=== PATIENT | male | born 1980 | race Caucasian/White ===

== ENCOUNTER 2016-09-14 09:55 | Emergency (ER) | payer BC, OTHER ==
[2016-09-14] MEDS ORDERED: Ibuprofen 800 MG TAB ONE (10:59)
[2016-09-14] MEDS ORDERED: HYDROcodone/Acetaminophen 10/325 mg Tablet ONE (10:59)
--- NOTE | 2016-09-14 11:23 | RAD ---
THREE VIEWS OF THE RIGHT FOOT: Indication: Twisting injury to right foot three days ago with pain. FINDINGS: Lisfranc alignment is preserved. No acute fracture or subluxation is evident. No radiopaque foreig n body is noted. IMPRESSION: No acute osseous abnormality. POS: [facility]
--- NOTE | 2016-09-14 11:31 | ERRECORD ---
[facility] EMERGENCY RECORD HPI FOOT (TueSep 15, 2016 06:17 AGRE) CHIEF COMPLAINT: Patient presents for evaluation of decreased range of motion, Patient presents for evaluation of injury, Patient presents for evaluation of pain, Patient presents for evaluation of swelling, Patient presents for evaluation of tenderness, to the right foot. HISTORIAN: History provided by patient, WAS WALKING OVER THE WEEKEND AND TWISTED HER FOOT. COMPLAIN OF PAIN ON WALKING. SAW A PHYSICIAN YESTERDAY AND EXAMINED BUT NO XRAYS OR PAIN MEDS. WAS TOLD IT WAS A SPRAIN BUT IF WORST GO TO THE ED. MECHANISM OF INJURY: Known mechanism. LOCATION: No localizing symptoms. QUALITY: Pain is sharp in nature, described as shooting, described as stabbing. SEVERITY: Maximum severity of symptoms severe, Currently symptoms are severe. TIME COURSE: Gradual onset of symptoms, Symptoms are worsening, are constant. ASSOCIATED WITH: No associated ankle pain, No associated distal injury, No associated distal neuro complaint, No associated erythema, No associated hip pain, No associated inability to ambulate, No associated inability to bear weight, No associated knee pain, No associated open wounds, Associated with pain on walking, No associated proximal injury, No associated tingling, No associated weakness distal to injury, Denies any other complaints. EXACERBATED BY: Patient's condition exacerbated by walking. RELIEVED BY: Patient's condition relieved by nothing. ROS (TueSep 15, 2016 06:20 AGRE) CONSTITUTIONAL: Historian denies chills, denies fever, denies lethargy, denies malaise. EYES: Historian denies eye pain, denies eye redness. ENT: Historian denies rhinorrhea, denies sinus pain, denies sore throat. CARDIOVASCULAR: Historian denies chest pain, denies dyspnea on exertion. RESPIRATORY: Historian denies cough, denies shortness of breath. GI: Historian denies abdominal pain, denies nausea, denies vomiting. MUSCULOSKELETAL: Historian denies back pain, denies neck pain. SKIN: Negative skin review of systems, Historian denies skin changes, denies skin lesions. NEUROLOGIC: Historian denies headache, denies mental status changes. PSYCHIATRIC: Negative psychiatric review of systems, Historian denies anxiety. PAST MEDICAL HISTORY (10:14 MSPE) MEDICAL HISTORY: Past medical history includes cardiac history, cardiac ablation, Mar 2016, Flu vaccine not up to &a-1R&a+25V*p+0X*b1710L*c202B*c15G*c2P*p-0X&a-25V&a+1R Name: Andrew Weber : 1980 M36 MedRec: [id number] AcctNum: [id number] Prepared: TueSep 15, 2016 06:33 by Interface Page 1 of 4 pMD [facility] EMERGENCY RECORD date, Tetanus up to date, Pneumococcal vaccine not up to date, Past medical history includes cardiac history, arrhythmia, atrial fibrillation, Past medical history includes endocrine disease, hypothyroidism, Notes: chonic back pain, ,includes history of diabetes, Type II, diet controlled, includes history of obesity, SLEEP APNEA,. MALE SURGICAL HISTORY: ADDENOIDECTOMY, Surgical history of orthopedic surgery-RT KNEE, BILATERAL HANDS, Surgical history of tonsillectomy. PSYCHIATRIC HISTORY: Psychiatric history includes, anxiety, Notes: ADHD, HX OF PANIC ATTACKS. SOCIAL HISTORY: Patient denies alcohol use, Patient denies drug use, Patient has no smoking history. KNOWN ALLERGIES Medrol (Sumit) Penicillins Sulfa (Sulfonamide Antibiotics) CURRENT MEDICATIONS (10:11 MSPE) flecainide: TABLET : Strength - 50 mg : ORAL Patient Dose: 1 tab(s) Oral 2 times a day. metFORMIN: TABLET : Strength - 500 mg : ORAL Patient Dose: 2 tab(s) Oral 2 times a day. Paxil: TABLET : Strength - 40 mg : ORAL Patient Dose: 40 mg Oral once a day. KlonoPIN: TABLET : Strength - 2 mg : ORAL Patient Dose: 1 tab(s) Oral 2 times a day. glyBURIDE: TABLET : Strength - 2.5 mg : ORAL Patient Dose: 1 tab(s) Oral once a day (in the morning). lisinopril: TABLET : Strength - 20 mg : ORAL Patient Dose: 1 tab(s) Oral once a day (in the morning). meTOPROLOL succinate: TABLET, EXTENDED RELEASE 24 HR : Strength - 25 mg : ORAL Patient Dose: 25 mg Oral once a day. VITAL SIGNS (10:11 MSPE) VITAL SIGNS: BP: 126/69, Pulse: 80, Resp: 18, Temp: 98.5 (Oral), Pain: 8, O2 sat: 97 on Room Air, Time: 09/14/2016 10:11. PHYSICAL EXAM (TueSep 15, 2016 06:20 AGRE) CONSTITUTIONAL: Vital signs reviewed, Patient afebrile, Patient appears non toxic, Patient appears pain free, Patient alert and oriented to person, place and time, NURSES NOTES REVIEWED. &a-1R&a+25V*p+0X*k8884U*c202B*c15G*c2P*p-0X&a-25V&a+1R Name: Andrew Weber : 1980 M36 MedRec: [id number] AcctNum: [id number] Prepared: TueSep 15, 2016 06:33 by Interface Page 2 of 4 pMD [facility] EMERGENCY RECORD HEAD: Head exam included findings of head atraumatic, normocephalic. EYES: Eye exam included findings of eyelids normal to inspection, Extraocular muscles intact, Conjunctiva normal, Sclera normal. ENT: Ear exam normal, Nose exam normal, Mouth exam normal. NECK: Neck exam included findings of normal range of motion, no meningeal signs. RESPIRATORY CHEST: Respiratory exam included findings of no respiratory distress, Chest exam included findings of chest movement symmetrical. BACK: Back exam included findings of normal inspection, range of motion normal. UPPER EXTREMITY: Upper extremity exam included findings of inspection normal, Range of motion normal. LOWER EXTREMITY: Motor strength normal, Sensation intact, Pedal pulse normal, distal pulses intact, capillary refill less than 2 seconds, distal motor intact, distal sensory intact, SWELLING AND TENDERNESS TO PALPATION OVER THE TOP OF THE RIGHT FOOT OVER THE 2ND METATARSAL AND OVER THE 2ND TOE PROXIMAL PHALANX. NEURO: Neuro exam findings include patient oriented to person, place and time, Speech normal, Gait normal, Memory normal, Cranial nerves intact, no focal motor deficits. SKIN: Skin exam included findings of skin warm, dry, and normal in color. PSYCHIATRIC: Psychiatric exam normal, Normal affect. RADIOLOGYINTERPRETATION (TueSep 15, 2016 06:22 AGRE) ELECTRICAL LINEWORKER: Preliminary review of x-rays by, Radiologist, NO FX OR DISLOCATION. MEDICATION ADMINISTRATION SUMMARY Drug Name: ibuprofen, Dose Ordered: 800 mg, Route: Oral, Status: Ordered, Time: 10:58 09/14/2016, Drug Name: HYDROcodone-acetaminophen, Dose Ordered: 10/325 tab(s), Route: Oral, Status: Ordered, Time: 10:58 09/14/2016, Detailed record available in Medication Service section. DOCTOR NOTES (TueSep 15, 2016 06:22 AGRE) RE-EVALUATION: Routine re-evaluation, after administration of analgesics, The patient's condition has improved. TEXT: DISCUSSED WITH PATIENT AND TRANSPORTATION DEPARTMENT SUPERVISOR THE FINDINGS ON EXAM, RESULTS OF XRAYS, RECOMMENDATIONS FOR MANAGEMENT OF THE INJURIES AND PAIN, IMMOBILIZATION WITH ORTHO SHOE, NEED FOR FOLLOW UP, POSSIBILITY OF HAIRLINE FX, HE EXPRESSED UNDERSTANDING AND AGREEMENT. PATIENT STATUS: Patient has improved since arrival to emergency department. PATIENT PLAN: The patient will be discharged. DATA REVIEWED: Xray data reviewed, Discussed with family. &a-1R&a+25V*p+0X*l9700I*c202B*c15G*c2P*p-0X&a-25V&a+1R Name: Andrew Weber : 1980 M36 MedRec: [id number] AcctNum: [id number] Prepared: TueSep 15, 2016 06:33 by Interface Page 3 of 4 pMD [facility] EMERGENCY RECORD PROBLEM LIST No recorded problems DIAGNOSIS (10:48 AGRE) FINAL: PRIMARY: RIGHT foot sprain. PRESCRIPTION (10:59 AGRE) Motrin: TABLET : 800 mg : ORAL : Quantity: 1 Unit: tab(s) Route: ORAL Schedule: 3 times a day Dispense: 24 May substitute. Refills: No Refills . NOTES: No Refills. acetaminophen-codeine: TABLET : 300 mg-60 mg : ORAL : Quantity: 1 Unit: tab(s) Route: ORAL Schedule: every 6 hours PRN Dispense: 20 Unit: tab(s) May substitute. Refills: No Refills . NOTES: prn severe pain No Refills. DISPOSITION PATIENT: Disposition Type: Discharge, Disposition: *Discharge Home, Condition: Improved. (10:48 AGRE) Patient left the department. (11:23 MSPE) Delgado: AGRE=MD Scot, Gio MSPE=JAKOB Pablo, Michelle &a-1R&a+25V*p+0X*d3377Y*c202B*c15G*c2P*p-0X&a-25V&a+1R Name: Andrew Weber : 1980 M36 MedRec: [id number] AcctNum: [id number] Prepared: TueSep 15, 2016 06:33 by Interface Page 4 of 4 pMD MTDD
--- NOTE | 2016-09-14 11:37 | PICIS ---
[facility] EMERGENCY RECORD TRIAGE (10:10 MSPE) TRIAGE NOTES: saw PCP yesterday for same...c/o right foot pain since yesterday. Denies known injury. (10:10 MSPE) PATIENT: NAME: Andrew Weber, AGE: 36, GENDER: male, : Tue1980, TIME OF GREET: TueSep 14, 2016 09:55, PREFERRED LANGUAGE: Korean, ETHNICITY: Not or , ECODE BILLING MAP: [facility], SSN: [id number], Zip Code: [address], KG WEIGHT: [phone], PHONE: , , , PERSON ID: [id number], PCP: MD Workman Katherine. (10:10 MSPE) COMPLAINT: RIGHT FOOT PAIN. (10:10 MSPE) ADMISSION: URGENCY: 4 Non Urgent, ADMISSION SOURCE: Home, TRANSPORT: CAR, BED: TRIAGE. (10:10 MSPE) SIRS SCORING: Heart Rate 55-109 (0), Temp range 96.8-101.1 (0), respiratory rate 12-24 (0), Mental Status altered: no (0), Total SIRS Score 0. (10:19 MSPE) PROVIDERS: TRIAGE NURSE: Michelle Pablo RN. (10:10 MSPE) VITAL SIGNS: BP 126/69, Pulse 80, Resp 18, Temp 98.5, (Oral), Pain 8, O2 Sat 97, on Room Air, Time 09/14/2016 10:11. (10:11 MSPE) PREVIOUS VISIT ALLERGIES: Medrol (Sumit), Penicillins, Sulfa (Sulfonamide Antibiotics). (10:10 MSPE) Medrol (Sumit), Penicillins, Sulfa (Sulfonamide Antibiotics). (10:14 MSPE) KNOWN ALLERGIES Medrol (Sumit) Penicillins Sulfa (Sulfonamide Antibiotics) CURRENT MEDICATIONS (10:11 MSPE) flecainide: TABLET : Strength - 50 mg : ORAL Patient Dose: 1 tab(s) Oral 2 times a day. metFORMIN: TABLET : Strength - 500 mg : ORAL Patient Dose: 2 tab(s) Oral 2 times a day. Paxil: TABLET : Strength - 40 mg : ORAL Patient Dose: 40 mg Oral once a day. KlonoPIN: TABLET : Strength - 2 mg : ORAL Patient Dose: 1 tab(s) Oral 2 times a day. glyBURIDE: TABLET : Strength - 2.5 mg : ORAL Patient Dose: 1 tab(s) Oral once a day (in the morning). lisinopril: TABLET : Strength - 20 mg : ORAL Patient Dose: 1 tab(s) Oral once a day (in the morning). meTOPROLOL succinate: TABLET, EXTENDED RELEASE 24 HR : Strength - 25 mg : ORAL Patient Dose: 25 mg Oral once a day. &a-1R&a+25V*p+0X*q1451P*c202B*c15G*c2P*p-0X&a-25V&a+1R Name: Andrew Weber : 1980 M36 MedRec: [id number] AcctNum: [id number] Prepared: TueSep 15, 2016 06:38 by Interface Page 1 of 6 pMD [facility] EMERGENCY RECORD VITAL SIGNS (10:11 MSPE) VITAL SIGNS: BP: 126/69, Pulse: 80, Resp: 18, Temp: 98.5 (Oral), Pain: 8, O2 sat: 97 on Room Air, Time: 09/14/2016 10:11. NURSING ASSESSMENT: EXTREMITY LOWER (10:16 MSPE) CONSTITUTIONAL: Patient arrives ambulatory, Unsteady gait, ambulates with slight limp, History obtained from patient, Patient appears comfortable, Patient cooperative, Patient alert, Oriented to person, place and time, Skin warm, Skin dry. PAIN: stabbing pain, throbbing pain, Onset of pain yesterday. RIGHT LOWER EXTREMITY: Right lower extremity assessment findings include capillary refill less than 2 seconds, Skin color normal, Skin temperature warm, Distal sensation intact, posterior tibia pulse is +3, dorsalis pedis pulse is +3, Notes: tenderness to dorsum of right foot; sts had "cyst" yesterday at MD s office. No swelling or redness noted at present. NURSING PROCEDURE: BEDSIDE RADIOLOGY (10:31 CCRI) BEDSIDE RADIOLOGY: Bedside radiology performed by CC, Portable x-ray performed, of the right foot. NURSING PROCEDURE: DISCHARGE NOTE (11:18 MSPE) DISCHARGE: Patient discharged to home, ambulating without assistance, family driving, accompanied by parent, Summary of Care printed/ provided, Discharge instructions given to patient, Simple or moderate discharge teaching performed, Prescriptions given and instructions on side effects given, Above person(s) verbalized understanding of discharge instructions and follow-up care, Patient treated and evaluated by physician. BELONGINGS: Belongings remain with patient. NURSING PROCEDURE: SPLINTING (11:15 MSPE) SPLINTING: Splinting indicated for sprain care, Splint applied to, on the right foot, by Luis Miguel Pablo RN, post-op shoe applied. ORDER DETAILS Order Name: Miscellaneous Nurse Order(s), Status: Done, Time: 11:20 09/14/2016, User: JOY, - Ordered for: MD Ellison Andrea, - Entered by: JAKOB Pablo Marilyn - Tue Sep 14, 2016 11:20, - Quantity: 1, Order Name: XR Foot Rt 3 View STANDARD, Status: Active, Time: 10:25 09/14/2016, User: MARTÍNEZ, - Ordered for: MD Ellison Andrea, - Entered by: MD Ellison Andrea - Tue Sep 14, 2016 10:25, - Quantity: 1. &a-1R&a+25V*p+0X*o2549P*c202B*c15G*c2P*p-0X&a-25V&a+1R Name: Andrew Weber : 1980 M36 MedRec: [id number] AcctNum: [id number] Prepared: TueSep 15, 2016 06:38 by Interface Page 2 of 6 pMD [facility] EMERGENCY RECORD MEDICATION ADMINISTRATION SUMMARY Drug Name: ibuprofen, Dose Ordered: 800 mg, Route: Oral, Status: Ordered, Time: 10:58 09/14/2016, Drug Name: HYDROcodone-acetaminophen, Dose Ordered: 10/325 tab(s), Route: Oral, Status: Ordered, Time: 10:58 09/14/2016, Detailed record available in Medication Service section. MEDICATION SERVICE (:58 MARTÍNEZ) HYDROcodone-acetaminophen: Order: HYDROcodone-acetaminophen (hydrocodone bitartrate/acetaminophen) - Dose: 10/325 tab(s) : Oral Ordered by: Gio Ellison MD Entered by: Gio Ellison MD [facility] Sep 14, 2016 10:58 , Acknowledged by: Michelle Pablo RN TueSep 14, 2016 10:58. ibuprofen: Order: ibuprofen - Dose: 800 mg : Oral Ordered by: Gio Ellison MD Entered by: Gio Ellison MD [facility] Sep 14, 2016 10:58 , Acknowledged by: Michelle Pablo RN Sep 14, 2016 10:58. HPI FOOT (TueSep 15, 2016 06:17 AGRE) CHIEF COMPLAINT: Patient presents for evaluation of decreased range of motion, Patient presents for evaluation of injury, Patient presents for evaluation of pain, Patient presents for evaluation of swelling, Patient presents for evaluation of tenderness, to the right foot. HISTORIAN: History provided by patient, WAS WALKING OVER THE WEEKEND AND TWISTED HER FOOT. COMPLAIN OF PAIN ON WALKING. SAW A PHYSICIAN YESTERDAY AND EXAMINED BUT NO XRAYS OR PAIN MEDS. WAS TOLD IT WAS A SPRAIN BUT IF WORST GO TO THE ED. MECHANISM OF INJURY: Known mechanism. LOCATION: No localizing symptoms. QUALITY: Pain is sharp in nature, described as shooting, described as stabbing. SEVERITY: Maximum severity of symptoms severe, Currently symptoms are severe. TIME COURSE: Gradual onset of symptoms, Symptoms are worsening, are constant. ASSOCIATED WITH: No associated ankle pain, No associated distal injury, No associated distal neuro complaint, No associated erythema, No associated hip pain, No associated inability to ambulate, No associated inability to bear weight, No associated knee pain, No associated open wounds, Associated with pain on walking, No associated proximal injury, No associated tingling, No associated weakness distal to injury, Denies any other complaints. EXACERBATED BY: Patient's condition exacerbated by walking. RELIEVED BY: Patient's condition relieved by nothing. ROS (TueSep 15, 2016 06:20 AGRE) &a-1R&a+25V*p+0X*e5304K*c202B*c15G*c2P*p-0X&a-25V&a+1R Name: Andrew Weber : 1980 M36 MedRec: [id number] AcctNum: [id number] Prepared: TueSep 15, 2016 06:38 by Interface Page 3 of 6 pMD [facility] EMERGENCY RECORD CONSTITUTIONAL: Historian denies chills, denies fever, denies lethargy, denies malaise. EYES: Historian denies eye pain, denies eye redness. ENT: Historian denies rhinorrhea, denies sinus pain, denies sore throat. CARDIOVASCULAR: Historian denies chest pain, denies dyspnea on exertion. RESPIRATORY: Historian denies cough, denies shortness of breath. GI: Historian denies abdominal pain, denies nausea, denies vomiting. MUSCULOSKELETAL: Historian denies back pain, denies neck pain. SKIN: Negative skin review of systems, Historian denies skin changes, denies skin lesions. NEUROLOGIC: Historian denies headache, denies mental status changes. PSYCHIATRIC: Negative psychiatric review of systems, Historian denies anxiety. PAST MEDICAL HISTORY (10:14 MSPE) MEDICAL HISTORY: Past medical history includes cardiac history, cardiac ablation, Mar 2016, Flu vaccine not up to date, Tetanus up to date, Pneumococcal vaccine not up to date, Past medical history includes cardiac history, arrhythmia, atrial fibrillation, Past medical history includes endocrine disease, hypothyroidism, Notes: chonic back pain, ,includes history of diabetes, Type II, diet controlled, includes history of obesity, SLEEP APNEA,. MALE SURGICAL HISTORY: ADDENOIDECTOMY, Surgical history of orthopedic surgery-RT KNEE, BILATERAL HANDS, Surgical history of tonsillectomy. PSYCHIATRIC HISTORY: Psychiatric history includes, anxiety, Notes: ADHD, HX OF PANIC ATTACKS. SOCIAL HISTORY: Patient denies alcohol use, Patient denies drug use, Patient has no smoking history. PHYSICAL EXAM (TueSep 15, 2016 06:20 AGRE) CONSTITUTIONAL: Vital signs reviewed, Patient afebrile, Patient appears non toxic, Patient appears pain free, Patient alert and oriented to person, place and time, NURSES NOTES REVIEWED. HEAD: Head exam included findings of head atraumatic, normocephalic. EYES: Eye exam included findings of eyelids normal to inspection, Extraocular muscles intact, Conjunctiva normal, Sclera normal. ENT: Ear exam normal, Nose exam normal, Mouth exam normal. NECK: Neck exam included findings of normal range of motion, no meningeal signs. RESPIRATORY CHEST: Respiratory exam included findings of no respiratory distress, Chest exam included findings of chest movement symmetrical. BACK: Back exam included findings of normal inspection, range of &a-1R&a+25V*p+0X*k3125G*c202B*c15G*c2P*p-0X&a-25V&a+1R Name: Andrew Weber : 1980 M36 MedRec: [id number] AcctNum: [id number] Prepared: TueSep 15, 2016 06:38 by Interface Page 4 of 6 pMD [facility] EMERGENCY RECORD motion normal. UPPER EXTREMITY: Upper extremity exam included findings of inspection normal, Range of motion normal. LOWER EXTREMITY: Motor strength normal, Sensation intact, Pedal pulse normal, distal pulses intact, capillary refill less than 2 seconds, distal motor intact, distal sensory intact, SWELLING AND TENDERNESS TO PALPATION OVER THE TOP OF THE RIGHT FOOT OVER THE 2ND METATARSAL AND OVER THE 2ND TOE PROXIMAL PHALANX. NEURO: Neuro exam findings include patient oriented to person, place and time, Speech normal, Gait normal, Memory normal, Cranial nerves intact, no focal motor deficits. SKIN: Skin exam included findings of skin warm, dry, and normal in color. PSYCHIATRIC: Psychiatric exam normal, Normal affect. EVENTS TRANSFER: Triage to Emergency Triage. (TueSep 14, 2016 10:10 MSPE) Emergency Triage to Emergency Room -05. (10:16 MSPE) Removed from Emergency Emergency Room -05. (11:23 MSPE) RADIOLOGYINTERPRETATION (TueSep 15, 2016 06:22 AGRE) INTERVIEWING CLERK: Preliminary review of x-rays by, Radiologist, NO FX OR DISLOCATION. DOCTOR NOTES (TueSep 15, 2016 06:22 AGRE) RE-EVALUATION: Routine re-evaluation, after administration of analgesics, The patient's condition has improved. TEXT: DISCUSSED WITH PATIENT AND RETORT FURNACE HELPER THE FINDINGS ON EXAM, RESULTS OF XRAYS, RECOMMENDATIONS FOR MANAGEMENT OF THE INJURIES AND PAIN, IMMOBILIZATION WITH ORTHO SHOE, NEED FOR FOLLOW UP, POSSIBILITY OF HAIRLINE FX, HE EXPRESSED UNDERSTANDING AND AGREEMENT. PATIENT STATUS: Patient has improved since arrival to emergency department. PATIENT PLAN: The patient will be discharged. DATA REVIEWED: Xray data reviewed, Discussed with family. PROBLEM LIST No recorded problems DIAGNOSIS (10:48 AGRE) FINAL: PRIMARY: RIGHT foot sprain. DISPOSITION PATIENT: Disposition Type: Discharge, Disposition: *Discharge Home, Condition: Improved. (10:48 AGRE) Patient left the department. (11:23 MSPE) INSTRUCTION (10:49 [facility]) &a-1R&a+25V*p+0X*d7030M*c202B*c15G*c2P*p-0X&a-25V&a+1R Name: Andrew Weber : 1980 M36 MedRec: [id number] AcctNum: [id number] Prepared: TueSep 15, 2016 06:38 by Interface Page 5 of 6 pMD [facility] EMERGENCY RECORD DISCHARGE: FOOT SPRAIN. FOLLOWUP: MD Ji, [place], [facility], [facility], [address], [place] [address], . SPECIAL: ICE PACKS TO YOUR FOOT FOR 20 MINUTES EVERY 4 HOURS WHILE AWAKE FOR THE NEXT 3 DAYS. STAY OFF THE FOOT MUCH POSSIBLE FOR 10 DAYS. SEE YOUR PHYSICIAN FOR RECHECK IF THE PAIN HAS NOT RESOLVED IN 7 - 10 DAYS. SEE A PHYSICIAN SOONER IF WORSENING OR IF NEW SYMPTOMS DEVELOP. PRESCRIPTION (10:59 [facility]) Motrin: TABLET : 800 mg : ORAL : Quantity: 1 Unit: tab(s) Route: ORAL Schedule: 3 times a day Dispense: 24 May substitute. Refills: No Refills . NOTES: No Refills. acetaminophen-codeine: TABLET : 300 mg-60 mg : ORAL : Quantity: 1 Unit: tab(s) Route: ORAL Schedule: every 6 hours PRN Dispense: 20 Unit: tab(s) May substitute. Refills: No Refills . NOTES: prn severe pain No Refills. IMAGING (11:22 MSPE) *DISCHARGE INSTRUCTIONS RECEIPT: Image captured from scanner. *SUPPLY CHARGE SHEET: Image captured from scanner. ADMIN (TueSep 15, 2016 06:26 [facility]) DIGITAL SIGNATURE: MD Ellison Andrea. Delgado: MARTÍNEZ=MD Ellison Andrea CCRI=ADAMARIS Joseph Clemente MSPE=JAKOB Pablo Marilyn &a-1R&a+25V*p+0X*b7090B*c202B*c15G*c2P*p-0X&a-25V&a+1R Name: GusAndrew Inessa : 1980 M36 MedRec: [id number] AcctNum: [id number] Prepared: TueSep 15, 2016 06:38 by Interface Page 6 of 6 pMD MTDD
== END 2016-09-14 11:18 | disposition home or self-care (01) ==
LOC: NAV ERS 09:55
DX: S93.601A Unspecified sprain of right foot, initial encounter (principal); I48.91 Unspecified atrial fibrillation; E03.9 Hypothyroidism, unspecified; E11.9 Type 2 diabetes mellitus without complications; F41.9 Anxiety disorder, unspecified; X58.XXXA Exposure to other specified factors, initial encounter
CPT/HCPCS: 99283

== ENCOUNTER 2016-09-25 12:01 | Emergency (ER) | payer BC ==
[2016-09-25 12:50] LABS: #Basophils 0.1 thou/uL (0.0-0.2); #Eosinphils 0.2 thou/uL (0.0-0.7); #Lymphocytes 1.7 thou/uL (1.20-3.40); #Monocytes 0.6 thou/uL (0.11-0.59); #Neutrophils 3.9 thou/uL (1.40-6.50); %Basophils 0.9 % (0.0-1.0); %Eosinophils 3.1 % (0.0-10.0); %Lymphocytes 27.2 % (21.0-51.0); %Monocytes 8.7 % (0.0-10.0); Hematocrit 40.6 % (42.0-52.0); Mean Platelet Volume 6.9 fL (7.4-10.4); Red Blood Cell (RBC) Count 4.59 mill/uL (4.70-6.10); White Blood Cell (WBC) Count 6.4 thou/uL (4.8-10.8)
--- NOTE | 2016-09-25 12:58 | RAD ---
RIGHT FOOT THREE VIEWS HISTORY: Joint pain. Right great toe pain and erythema x1 week. COMPARISON: 09/14/2016 FINDINGS: Lisfranc alignment is maintained. Joint spaces are preserved. No fracture. No cortical irregulari ty. No periosteal reaction. Mild soft tissue swelling involving the first digit at the first metat arsophalangeal joint space. There are no erosive or destructive changes. IMPRESSION: Mild soft tissue swelling, nonspecific. POS: [facility]IE
--- NOTE | 2016-09-25 13:31 | ERRECORD ---
[facility] EMERGENCY RECORD HPI FOOT (12:28 SROB) CHIEF COMPLAINT: Patient presents for evaluation of pain, Patient presents for evaluation of swelling, to the right foot. HISTORIAN: History provided by patient, This 36 yo male complains of pain in the right mid foot with slight wswelling for 5 days which has gradually moved to the MP joint of the right foot. It is not very tender slightly red and swollen. He denies known injuries. MECHANISM OF INJURY: Unknown mechanism. LOCATION: Symptoms are localized, most severe in the first metatarsal. QUALITY: Pain is sharp in nature, described as shooting. SEVERITY: Maximum severity of pain rated as 10/10, Current severity of pain rated as 10/10. TIME COURSE: Gradual onset of symptoms, 5, days priror to arrival. ASSOCIATED WITH: No associated symptoms. EXACERBATED BY: Patient's condition exacerbated by walking. RELIEVED BY: Patient's condition relieved by nothing. ROS (12:30 SROB) CONSTITUTIONAL: Historian denies chills, denies fever. ENT: Historian denies epistaxis, denies otalgia, denies rhinorrhea, denies sore throat. CARDIOVASCULAR: Historian denies chest pain. RESPIRATORY: Historian denies cough, denies shortness of breath. GI: Historian denies nausea, denies vomiting. MUSCULOSKELETAL: Historian denies neck pain. Complains of pain in right great toe and MP joint. SKIN: Historian denies rash. NEUROLOGIC: Historian denies headache. PAST MEDICAL HISTORY (12:13 EPIE) MEDICAL HISTORY: Past medical history includes cardiac history, cardiac ablation, Mar 2016, Flu vaccine not up to date, Tetanus up to date, Pneumococcal vaccine not up to date, Past medical history includes cardiac history, arrhythmia, atrial fibrillation, Past medical history includes endocrine disease, hypothyroidism, Notes: chonic back pain, ,includes history of diabetes, Type II, diet controlled, includes history of obesity, SLEEP APNEA,. MALE SURGICAL HISTORY: ADDENOIDECTOMY, Surgical history of orthopedic surgery-RT KNEE, BILATERAL HANDS, Surgical history of tonsillectomy. PSYCHIATRIC HISTORY: Psychiatric history includes, anxiety, Notes: ADHD, HX OF PANIC ATTACKS. SOCIAL HISTORY: Patient denies alcohol use, Patient denies drug use, Patient has no smoking history. KNOWN ALLERGIES Medrol (Sumit) Penicillins &a-1R&a+25V*p+0X*i6734Z*c202B*c15G*c2P*p-0X&a-25V&a+1R Name: Andrew Weber : 1980 6 MedRec: [id number] AcctNum: [id number] Prepared: Sat Sep 25, 2016 13:48 by Interface Page 1 of 4 pMD [facility] EMERGENCY RECORD Sulfa (Sulfonamide Antibiotics) CURRENT MEDICATIONS (12:10 EPIE) flecainide: TABLET : Strength - 50 mg : ORAL Patient Dose: 1 tab(s) Oral 2 times a day. metFORMIN: TABLET : Strength - 500 mg : ORAL Patient Dose: 2 tab(s) Oral 2 times a day. Paxil: TABLET : Strength - 40 mg : ORAL Patient Dose: 40 mg Oral once a day. KlonoPIN: TABLET : Strength - 2 mg : ORAL Patient Dose: 1 tab(s) Oral 2 times a day. glyBURIDE: TABLET : Strength - 2.5 mg : ORAL Patient Dose: 2 mg Oral once a day (in the morning). lisinopril: TABLET : Strength - 20 mg : ORAL Patient Dose: 1 tab(s) Oral once a day (in the morning). meTOPROLOL succinate: TABLET, EXTENDED RELEASE 24 HR : Strength - 25 mg : ORAL Patient Dose: 25 mg Oral once a day. VITAL SIGNS (12:07 EPIE) VITAL SIGNS: BP: 137/79, Pulse: 81, Resp: 20 (Non-Labored), Temp: 97.0 (Oral), Pain: 10, O2 sat: 97 on Room Air, Time: 09/25/2016 12:07. PHYSICAL EXAM CONSTITUTIONAL: He is morbidly obese., Vital signs reviewed, Patient alert and oriented to person, place and time. (12:31 SROB) HEAD: Head exam included findings of head atraumatic, normocephalic. (12:31 SROB) EYES: Pupils equally round and reactive to light, Extraocular muscles intact, Conjunctiva normal. (12:31 SROB) ENT: Ear exam normal, external ear normal, no drainage, no bleeding, Nose exam normal, no bleeding from nares. (12:31 SROB) NECK: Neck exam included findings of normal range of motion, Trachea midline, no jugular venous distention. (12:31 SROB) RESPIRATORY CHEST: Respiratory exam included findings of no respiratory distress, Breath sounds clear, No wheezing, No rales, No rhonchi. (12:31 SROB) CARDIOVASCULAR: Cardiovascular exam included findings of heart rate regular rate and rhythm, Heart sounds normal, normal S1, normal S2, no murmurs. (12:31 SROB) ABDOMEN MALE: Abdominal exam normal. (12:32 SROB) LOWER EXTREMITY: Lower extremity exam included findings of inspection abnormal, There is slight swelling and redness &a-1R&a+25V*p+0X*p5209F*c202B*c15G*c2P*p-0X&a-25V&a+1R Name: Andrew Weber : 1980 M36 MedRec: [id number] AcctNum: [id number] Prepared: Mendoza Sep 25, 2016 13:48 by Interface Page 2 of 4 pMD [facility] EMERGENCY RECORD medially at the MP joint of great toe., Foot erythema, Swelling of the foot noted, right foot, only the MP joint is affected with swelling and redness although the rest of the toe hurts with motion. (12:32 SROB) SKIN: Skin exam included findings of skin warm, dry. (12:31 SROB) RADIOLOGYINTERPRETATION (13:09 SROB) LOWER EXTREMITIES: Foot films negative, on the right, no fracture, no dislocation, no foreign body, no bony lesion, no degenerative joint disease. DOCTOR NOTES (12:33 SROB) TEXT: I discussed potential of gout, mild cellulitis/joint infection fvs occult fracture. PROBLEM LIST No recorded problems DIAGNOSIS (13:25 SROB) FINAL: PRIMARY: acute gouty arthritis right treat toe MP joint, ADDITIONAL: Acute gouty arthritiws right grea toe MP joint. PRESCRIPTION colchicine oral: TABLET : 0.6 mg : ORAL : Quantity: 1 Unit: tab(s) Route: ORAL Schedule: once a day Dispense: 6 Unit: tab(s) May substitute. Refills: No Refills . (13:19 SROB) NOTES: Take 2 tablets initially and then one more after 2 hours if not improved and you may take 1 tablet a day for up to 3 days afterwards No Refills. (13:19 SROB) Zofran ODT: TABLET,DISINTEGRATING : 4 mg : ORAL : Quantity: 1 Unit: tab(s) Route: ORAL Schedule: every 8 hours PRN Dispense: 10 Unit: tab(s) May substitute. Refills: No Refills . (13:19 SROB) NOTES: prn for nausea No Refills. (13:19 SROB) Naprosyn: TABLET : 500 mg : ORAL : Quantity: 1 Unit: tab(s) Route: ORAL Schedule: 2 times a day (after meals) Dispense: 20 Unit: tab(s) May substitute. Refills: No Refills . (13:20 SROB) NOTES: No Refills. (13:20 SROB) acetaminophen-codeine: CAPSULE : 325 mg-60 mg : ORAL : Quantity: 1 Unit: cap(s) Route: ORAL Schedule: every 6 hours PRN Dispense: 20 Unit: cap(s) May substitute. Refills: No Refills . (13:21 SROB) NOTES: No Refills. (13:21 SROB) Pepcid oral: SUSPENSION, ORAL (FINAL DOSE FORM) : 40 mg/5 mL : ORAL : Quantity: 1 Unit: tab(s) Route: ORAL Schedule: once a &a-1R&a+25V*p+0X*[id number]*c202B*c15G*c2P*p-0X&a-25V&a+1R Name: Andrew Weber : 1980 M36 MedRec: [id number] AcctNum: [id number] Prepared: Mendoza Sep 25, 2016 13:48 by Interface Page 3 of 4 pMD [facility] EMERGENCY RECORD day (in the morning) Dispense: 20 Unit: tab(s) May substitute. Refills: No Refills . (13:22 SROB) NOTES: No Refills. (13:22 SROB) Pepcid oral: TABLET : 40 mg : ORAL : Quantity: 1 Unit: tab(s) Route: ORAL Schedule: once a day (in the morning) Dispense: 20 Unit: tab(s) May substitute. Refills: No Refills . (13:27 SROB) NOTES: No Refills. (13:27 SROB) DISPOSITION PATIENT: Disposition Type: Discharge, Disposition: *Discharge Home, Disposition Transport: Ambulatory, Condition: Good. (13:23 SROB) Patient left the department. (13:45 EPIE) Delgado: EPIE=JAKOB Mejia, Claire SROB=MD Isaak, Dennis &a-1R&a+25V*p+0X*[id number]*c202B*c15G*c2P*p-0X&a-25V&a+1R Name: Andrew Weber : 1980 M36 MedRec: [id number] AcctNum: [id number] Prepared: Mendoza Sep 25, 2016 13:48 by Interface Page 4 of 4 pMD MTDD
--- NOTE | 2016-09-25 13:37 | PICIS ---
[facility] EMERGENCY RECORD TRIAGE (12:09 EPIE) TRIAGE NOTES: Pt report pain to right footstarting one week ago. States it started as a lump in the middle top of his foot. Pt reports right great toe pain now. (12:09 EPIE) PATIENT: NAME: Andrew Weber, AGE: 36, GENDER: male, : Tue1980, TIME OF GREET: Sat Sep 25, 2016 12:02, PREFERRED LANGUAGE: Yemeni, ETHNICITY: Not or , ECODE BILLING MAP: [facility] ER, SSN: [id number], Zip Code: [address], KG WEIGHT: [phone], PHONE: , , , PERSON ID: [id number], PCP: MD Workman Katherine. (12:09 EPIE) COMPLAINT: RIGHT TOE PAIN. (12:09 EPIE) ADMISSION: URGENCY: 4 Non Urgent, ADMISSION SOURCE: Home, TRANSPORT: CAR, BED: TRIAGE. (12:09 EPIE) TRIAGE SCREENING: Patient denies suicidal ideation, Patient denies presence of domestic violence. (12:13 EPIE) PROVIDERS: TRIAGE NURSE: Claire Mejia RN. (12:09 EPIE) VITAL SIGNS: BP 137/79, Pulse 81, Resp 20, (Non-Labored), Temp 97.0, (Oral), Pain 10, O2 Sat 97, on Room Air, Time 09/25/2016 12:07. (12:07 EPIE) PREVIOUS VISIT ALLERGIES: Medrol (Sumit), Penicillins, Sulfa (Sulfonamide Antibiotics). (12:09 EPIE) Medrol (Sumit), Penicillins, Sulfa (Sulfonamide Antibiotics). (12:13 EPIE) KNOWN ALLERGIES Medrol (Sumit) Penicillins Sulfa (Sulfonamide Antibiotics) CURRENT MEDICATIONS (12:10 EPIE) flecainide: TABLET : Strength - 50 mg : ORAL Patient Dose: 1 tab(s) Oral 2 times a day. metFORMIN: TABLET : Strength - 500 mg : ORAL Patient Dose: 2 tab(s) Oral 2 times a day. Paxil: TABLET : Strength - 40 mg : ORAL Patient Dose: 40 mg Oral once a day. KlonoPIN: TABLET : Strength - 2 mg : ORAL Patient Dose: 1 tab(s) Oral 2 times a day. glyBURIDE: TABLET : Strength - 2.5 mg : ORAL Patient Dose: 2 mg Oral once a day (in the morning). lisinopril: TABLET : Strength - 20 mg : ORAL Patient Dose: 1 tab(s) Oral once a day (in the morning). meTOPROLOL succinate: TABLET, EXTENDED RELEASE 24 HR : Strength - 25 mg : ORAL &a-1R&a+25V*p+0X*m9500A*c202B*c15G*c2P*p-0X&a-25V&a+1R Name: Andrew Weber : 1980 M36 MedRec: [id number] AcctNum: [id number] Prepared: Sat Sep 25, 2016 13:54 by Interface Page 1 of 6 pMD [facility] EMERGENCY RECORD Patient Dose: 25 mg Oral once a day. VITAL SIGNS (12:07 EPIE) VITAL SIGNS: BP: 137/79, Pulse: 81, Resp: 20 (Non-Labored), Temp: 97.0 (Oral), Pain: 10, O2 sat: 97 on Room Air, Time: 09/25/2016 12:07. NURSING ASSESSMENT: EXTREMITY LOWER (12:12 EPIE) CONSTITUTIONAL: Patient arrives ambulatory, Gait steady, History obtained from patient, Patient appears, uncomfortable, Patient cooperative, Patient alert, Oriented to person, place and time, Skin warm, Skin dry, Skin normal in color, Mucous membranes pink, Mucous membranes moist, Patient is well-groomed, Pt report pain to right footstarting one week ago. States it started as a lump in the middle top of his foot. Pt reports right great toe pain now. PAIN: aching pain, throbbing pain, right great toe, Onset of pain 09/18/2016, on a scale 0-10 patient rates pain as 10. LEFT LOWER EXTREMITY: Left lower extremity assessment findings include capillary refill less than 2 seconds, Skin color normal, Skin temperature warm, Distal sensation intact, Muscle tone normal. RIGHT LOWER EXTREMITY: Right lower extremity assessment findings include capillary refill less than 2 seconds, Skin color normal, Skin temperature warm, Distal sensation intact, Muscle tone normal, Inspection findings include redness, to base of great toe, Inspection findings include swelling, to great toe. NURSING PROCEDURE: DISCHARGE NOTE (13:35 EPIE) DISCHARGE: Patient discharged to home, ambulating without assistance, family driving, accompanied by //partner, Summary of Care printed/ provided, Discharge instructions given to patient, Simple or moderate discharge teaching performed, Prescriptions given and instructions on side effects given, Name of prescription(s) given: COLCHICINE, ZOFRAN, NAPROZYN, ACETAMINOPHEN-CODEINE, PEPCID, Above person(s) verbalized understanding of discharge instructions and follow-up care, Notes: Pt educated on proper diet for gout. BELONGINGS: Belongings and valuables with patient upon arrival to the Emergency Department include:, Belongings and valuables with patient at time of discharge include:, Belongings remain with patient, Valuables remain with patient. NURSING PROCEDURE: LAB DRAW (12:44 EPIE) PATIENT IDENTIFIER: Patient actively involved in identification process, Patient's identity verified by patient stating name, Patient's identity verified by hospital ID bracelet. LAB DRAW: Initial lab draw performed, by venipuncture, from right antecubital, in one attempt, Lab specimens labeled in the presence of the patient and sent to lab. &a-1R&a+25V*p+0X*a1992H*c202B*c15G*c2P*p-0X&a-25V&a+1R Name: Andrew Weber : 1980 M36 MedRec: [id number] AcctNum: [id number] Prepared: Sat Sep 25, 2016 13:54 by Interface Page 2 of 6 pMD [facility] EMERGENCY RECORD FOLLOW-UP: After procedure, dressing applied to site, After procedure, no swelling at site, After procedure, no active bleeding from site. ORDER DETAILS Order Name: CBC with Differential, Status: Active, Time: 12:20 09/25/2016, User: [email or web address], - Ordered for: MD Mulligan Sam, - Entered by: MD Mulligan Sam - Sat Sep 25, 2016 12:20, - Quantity: 1, Order Name: Uric Acid, Status: Active, Time: 12:20 09/25/2016, User: [email or web address], - Ordered for: MD Mulligan Sam, - Entered by: MD Mulligan Sam - Sat Sep 25, 2016 12:20, - Quantity: 1, Order Name: XR Foot Rt 3 View STANDARD, Status: Active, Time: 12:21 09/25/2016, User: [email or web address], - Ordered for: MD Mulligan Sam, - Entered by: MD Mulligan Sam - Sat Sep 25, 2016 12:21, - Quantity: 1. HPI FOOT (12:28 SROB) CHIEF COMPLAINT: Patient presents for evaluation of pain, Patient presents for evaluation of swelling, to the right foot. HISTORIAN: History provided by patient, This 36 yo male complains of pain in the right mid foot with slight wswelling for 5 days which has gradually moved to the MP joint of the right foot. It is not very tender slightly red and swollen. He denies known injuries. MECHANISM OF INJURY: Unknown mechanism. LOCATION: Symptoms are localized, most severe in the first metatarsal. QUALITY: Pain is sharp in nature, described as shooting. SEVERITY: Maximum severity of pain rated as 10/10, Current severity of pain rated as 10/10. TIME COURSE: Gradual onset of symptoms, 5, days priror to arrival. ASSOCIATED WITH: No associated symptoms. EXACERBATED BY: Patient's condition exacerbated by walking. RELIEVED BY: Patient's condition relieved by nothing. ROS (12:30 SROB) CONSTITUTIONAL: Historian denies chills, denies fever. ENT: Historian denies epistaxis, denies otalgia, denies rhinorrhea, denies sore throat. CARDIOVASCULAR: Historian denies chest pain. RESPIRATORY: Historian denies cough, denies shortness of breath. GI: Historian denies nausea, denies vomiting. MUSCULOSKELETAL: Historian denies neck pain. Complains of pain in right great toe and MP joint. &a-1R&a+25V*p+0X*k3151G*c202B*c15G*c2P*p-0X&a-25V&a+1R Name: Andrew Weber : 1980 M36 MedRec: [id number] AcctNum: [id number] Prepared: Sat Sep 25, 2016 13:54 by Interface Page 3 of 6 pMD [facility] EMERGENCY RECORD SKIN: Historian denies rash. NEUROLOGIC: Historian denies headache. PAST MEDICAL HISTORY (12:13 EPIE) MEDICAL HISTORY: Past medical history includes cardiac history, cardiac ablation, Mar 2016, Flu vaccine not up to date, Tetanus up to date, Pneumococcal vaccine not up to date, Past medical history includes cardiac history, arrhythmia, atrial fibrillation, Past medical history includes endocrine disease, hypothyroidism, Notes: chonic back pain, ,includes history of diabetes, Type II, diet controlled, includes history of obesity, SLEEP APNEA,. MALE SURGICAL HISTORY: ADDENOIDECTOMY, Surgical history of orthopedic surgery-RT KNEE, BILATERAL HANDS, Surgical history of tonsillectomy. PSYCHIATRIC HISTORY: Psychiatric history includes, anxiety, Notes: ADHD, HX OF PANIC ATTACKS. SOCIAL HISTORY: Patient denies alcohol use, Patient denies drug use, Patient has no smoking history. PHYSICAL EXAM CONSTITUTIONAL: He is morbidly obese., Vital signs reviewed, Patient alert and oriented to person, place and time. (12:31 SROB) HEAD: Head exam included findings of head atraumatic, normocephalic. (12:31 SROB) EYES: Pupils equally round and reactive to light, Extraocular muscles intact, Conjunctiva normal. (12:31 SROB) ENT: Ear exam normal, external ear normal, no drainage, no bleeding, Nose exam normal, no bleeding from nares. (12:31 SROB) NECK: Neck exam included findings of normal range of motion, Trachea midline, no jugular venous distention. (12:31 SROB) RESPIRATORY CHEST: Respiratory exam included findings of no respiratory distress, Breath sounds clear, No wheezing, No rales, No rhonchi. (12:31 SROB) CARDIOVASCULAR: Cardiovascular exam included findings of heart rate regular rate and rhythm, Heart sounds normal, normal S1, normal S2, no murmurs. (12:31 SROB) ABDOMEN MALE: Abdominal exam normal. (12:32 SROB) LOWER EXTREMITY: Lower extremity exam included findings of inspection abnormal, There is slight swelling and redness medially at the MP joint of great toe., Foot erythema, Swelling of the foot noted, right foot, only the MP joint is affected with swelling and redness although the rest of the toe hurts with motion. (12:32 SROB) SKIN: Skin exam included findings of skin warm, dry. (12:31 SROB) LAB INTERPRETATION (13:08 SROB) INTERPRETATION: I reviewed the lab results, uric acid high-gout. &a-1R&a+25V*p+0X*e2453A*c202B*c15G*c2P*p-0X&a-25V&a+1R Name: Andrew Weber : 1980 M36 MedRec: [id number] AcctNum: [id number] Prepared: [facility] Sep 25, 2016 13:54 by Interface Page 4 of 6 pMD [facility] EMERGENCY RECORD EVENTS TRANSFER: Triage to Emergency Triage. (Sat Sep 25, 2016 12:09 EPIE) Emergency Triage to Emergency Room -02. (12:11 EPIE) Removed from Emergency Emergency Room -02. (13:45 EPIE) RADIOLOGYINTERPRETATION (13:09 SROB) LOWER EXTREMITIES: Foot films negative, on the right, no fracture, no dislocation, no foreign body, no bony lesion, no degenerative joint disease. DOCTOR NOTES (12:33 SROB) TEXT: I discussed potential of gout, mild cellulitis/joint infection fvs occult fracture. PROBLEM LIST No recorded problems DIAGNOSIS (13:25 SROB) FINAL: PRIMARY: acute gouty arthritis right treat toe MP joint, ADDITIONAL: Acute gouty arthritiws right grea toe MP joint. DISPOSITION PATIENT: Disposition Type: Discharge, Disposition: *Discharge Home, Disposition Transport: Ambulatory, Condition: Good. (13:23 SROB) Patient left the department. (13:45 EPIE) INSTRUCTION (13:25 SROB) DISCHARGE: GOUTY ARTHRITIS. FOLLOWUP: MD Workman Katherine, [facility], [address] [place] [address], [facility], [facility] [address], , Follow up with Primary Care Physician in 3-4 days. PRESCRIPTION colchicine oral: TABLET : 0.6 mg : ORAL : Quantity: 1 Unit: tab(s) Route: ORAL Schedule: once a day Dispense: 6 Unit: tab(s) May substitute. Refills: No Refills . (13:19 SROB) NOTES: Take 2 tablets initially and then one more after 2 hours if not improved and you may take 1 tablet a day for up to 3 days afterwards No Refills. (13:19 SROB) Zofran ODT: TABLET,DISINTEGRATING : 4 mg : ORAL : Quantity: 1 Unit: tab(s) Route: ORAL Schedule: every 8 hours PRN Dispense: 10 Unit: tab(s) May substitute. Refills: No Refills . (13:19 SROB) NOTES: prn for nausea No Refills. (13:19 SROB) &a-1R&a+25V*p+0X*c8842W*c202B*c15G*c2P*p-0X&a-25V&a+1R Name: Andrew Weber : 1980 M36 MedRec: [id number] AcctNum: [id number] Prepared: Mendoza Sep 25, 2016 13:54 by Interface Page 5 of 6 pMD [facility] EMERGENCY RECORD Naprosyn: TABLET : 500 mg : ORAL : Quantity: 1 Unit: tab(s) Route: ORAL Schedule: 2 times a day (after meals) Dispense: 20 Unit: tab(s) May substitute. Refills: No Refills . (13:20 SROB) NOTES: No Refills. (13:20 SROB) acetaminophen-codeine: CAPSULE : 325 mg-60 mg : ORAL : Quantity: 1 Unit: cap(s) Route: ORAL Schedule: every 6 hours PRN Dispense: 20 Unit: cap(s) May substitute. Refills: No Refills . (13:21 SROB) NOTES: No Refills. (13:21 SROB) Pepcid oral: SUSPENSION, ORAL (FINAL DOSE FORM) : 40 mg/5 mL : ORAL : Quantity: 1 Unit: tab(s) Route: ORAL Schedule: once a day (in the morning) Dispense: 20 Unit: tab(s) May substitute. Refills: No Refills . (13:22 SROB) NOTES: No Refills. (13:22 SROB) Pepcid oral: TABLET : 40 mg : ORAL : Quantity: 1 Unit: tab(s) Route: ORAL Schedule: once a day (in the morning) Dispense: 20 Unit: tab(s) May substitute. Refills: No Refills . (13:27 SROB) NOTES: No Refills. (13:27 SROB) IMAGING *DISCHARGE INSTRUCTIONS RECEIPT: Image captured from scanner. (13:44 EPIE) Page 2 added. Image captured from scanner. (13:44 EPIE) *SUPPLY CHARGE SHEET: Image captured from scanner. (13:45 EPIE) ADMIN DIGITAL SIGNATURE: MD Mulligan Sam. (13:26 SROB) MD Mulligan Sam. (13:32 SROB) RESULTS (13:07 SROB) LABORATORY: Uric Acid Collection DT: [facility] Sep 25, 2016 12:42, *Uric Acid 7.7 - H mg/dL, Range (3.5-7.2). Delgado: EPIE=JAKOB Mejia, Claire SROB=MD Isaak, Dennis &a-1R&a+25V*p+0X*y9354B*c202B*c15G*c2P*p-0X&a-25V&a+1R Name: Andrew Weber : 1980 M36 MedRec: [id number] AcctNum: [id number] Prepared: [facility] Sep 25, 2016 13:54 by Interface Page 6 of 6 pMD MTDD
== END 2016-09-25 13:35 | disposition home or self-care (01) ==
LOC: NAV ERS 12:01
DX: M10.9 Gout, unspecified (principal); E03.9 Hypothyroidism, unspecified; E66.9 Obesity, unspecified; E11.9 Type 2 diabetes mellitus without complications; I49.9 Cardiac arrhythmia, unspecified; G47.30 Sleep apnea, unspecified; F41.9 Anxiety disorder, unspecified; F90.9 Attention-deficit hyperactivity disorder, unspecified type; Z79.84 Long term (current) use of oral hypoglycemic drugs; Z79.899 Other long term (current) drug therapy
CPT/HCPCS: 84550; 85025; 99283

== ENCOUNTER 2017-03-08 13:00 | Emergency (ER) | payer BC ==
[2017-03-08] MEDS ORDERED: Insulin Regular 300 UNITS/3 ML VIAL ONE (13:34)
[2017-03-08 14:02] LABS: Bilirubin Negative (Negative); Blood, Urine Negative (Negative); Glucose, Urine (Dipstick) >=1000 mg/dL (Negative); Leukocyte Negative (Negative); Nitrite Negative (Negative); Protein, Urine (Dipstick) Negative (Neg-Trace); Urobilinogen 0.2 mg/dL (0.2-1.0); pH, Urine 5.5 (5.0-9.0)
[2017-03-08 14:11] LABS: Clarity SL HAZY (Clear)
[2017-03-08 14:16] LABS: Anion Gap 13 mmol/L (10-20); BUN (Urea Nitrogen) 11 mg/dL (8.9-20.6); Calc. Creatinine Clearance 0 mL/min (70-130); Carbon Dioxide 23 mmol/L (22-29); Chloride 104 mmol/L (98-107); Estimated GFR-MDRD 85; Glucose 380 mg/dL (70-105); Potassium 4.3 mmol/L (3.5-5.1); Sodium 136 mmol/L (136-145)
== END 2017-03-08 14:35 | disposition home or self-care (01) ==
LOC: NAV ERS 13:00
DX: E11.65 Type 2 diabetes mellitus with hyperglycemia (principal); J01.90 Acute sinusitis, unspecified; K02.9 Dental caries, unspecified; I48.91 Unspecified atrial fibrillation; E03.9 Hypothyroidism, unspecified; F41.0 Panic disorder [episodic paroxysmal anxiety]; F90.9 Attention-deficit hyperactivity disorder, unspecified type; Z79.84 Long term (current) use of oral hypoglycemic drugs; Z79.899 Other long term (current) drug therapy
CPT/HCPCS: 36416; 80048; 81003; 96372; J1815

== ENCOUNTER 2017-10-29 11:53 | Emergency (ER) | payer BC, SELFPAY ==
[2017-10-29] MEDS ORDERED: cefTRIAXone\\ROCEPHIN 2 GM VIAL ONE (12:27)
[2017-10-29] MEDS ORDERED: Lidocaine 1% 20 ML MDV ONE (12:27)
== END 2017-10-29 13:06 | disposition home or self-care (01) ==
LOC: NAV ERS 11:53
DX: J32.9 Chronic sinusitis, unspecified (principal); I48.91 Unspecified atrial fibrillation; E03.9 Hypothyroidism, unspecified; E11.9 Type 2 diabetes mellitus without complications; E66.9 Obesity, unspecified; G47.30 Sleep apnea, unspecified; F41.9 Anxiety disorder, unspecified; F90.9 Attention-deficit hyperactivity disorder, unspecified type; Z79.84 Long term (current) use of oral hypoglycemic drugs; Z79.899 Other long term (current) drug therapy
CPT/HCPCS: 96372; J0696; J2001

== ENCOUNTER 2017-11-29 13:48 | Emergency (ER) | payer SELFPAY ==
[2017-11-29 14:14] LABS: Bilirubin Negative (Negative); Blood, Urine Trace (Negative); Glucose, Urine (Dipstick) Negative (Negative); Leukocyte Trace (Negative); Nitrite Negative (Negative); Protein, Urine (Dipstick) 30 mg/dL (Neg-Trace); Specific Gravity, Urine 1.025 (1.005-1.030); Urobilinogen 0.2 mg/dL (0.2-1.0); pH, Urine 5.5 (5.0-9.0)
[2017-11-29 14:18] LABS: Clarity SL HAZY (Clear)
[2017-11-29 14:21] LABS: RBC/HPF 0-3 HPF (0-3); Squamous Epithelial 0-3 HPF (0-3); WBC/HPF 0-3 HPF (0-3)
[2017-11-29 14:22] LABS: Bacteria/HPF Rare-Few HPF (None Seen); Sperm/HPF Rare HPF (None Seen)
[2017-11-29 14:48] LABS: #Basophils 0.1 thou/uL (0.0-0.2); #Eosinphils 0.1 thou/uL (0.0-0.7); #Lymphocytes 2.3 thou/uL (1.20-3.40); #Monocytes 0.5 thou/uL (0.11-0.59); #Neutrophils 3.9 thou/uL (1.40-6.50); %Basophils 1.2 % (0.0-1.0); %Lymphocytes 33.3 % (21.0-51.0); %Monocytes 7.7 % (0.0-10.0); %Neutrophils 55.8 % (42.0-75.0); Hemoglobin 15.3 g/dL (14.0-18.0); Mean Corpuscular HGB CONC 34.5 g/dL (32.0-36.0); Mean Corpuscular Hemoglobin 29.9 pg (27.0-31.0); Mean Corpuscular Volume 86.5 fl (80.0-94.0); Mean Platelet Volume 6.7 fL (7.4-10.4); Platelet Count 247 thou/uL (130-400); RBC Distribution Width 12.6 % (11.5-14.5); Red Blood Cell (RBC) Count 5.13 mill/uL (4.70-6.10); White Blood Cell (WBC) Count 6.9 thou/uL (4.8-10.8)
[2017-11-29 14:58] LABS: ALT (SGPT) 58 U/L (8-55); AST (SGOT) 43 U/L (5-34); Albumin 4.4 g/dL (3.5-5.0); Alkaline Phosphatase 62 U/L (40-150); Anion Gap 17 mmol/L (10-20); BUN (Urea Nitrogen) 21 mg/dL (8.9-20.6); Bilirubin, Total 1.1 mg/dL (0.2-1.2); Calc. Creatinine Clearance 0 mL/min (70-130); Calcium 9.8 mg/dL (7.8-10.44); Carbon Dioxide 24 mmol/L (22-29); Chloride 101 mmol/L (98-107); Estimated GFR-MDRD 78; Globulin 3.5 g/dL (2.4-3.5); Glucose 138 mg/dL (70-105); Potassium 4.2 mmol/L (3.5-5.1); Protein, Total 7.9 g/dL (6.0-8.3); Sodium 138 mmol/L (136-145)
== END 2017-11-29 15:22 | disposition home or self-care (01) ==
LOC: NAV ERS 13:48
DX: N41.9 Inflammatory disease of prostate, unspecified (principal); I48.91 Unspecified atrial fibrillation; E03.9 Hypothyroidism, unspecified; E11.9 Type 2 diabetes mellitus without complications; G47.30 Sleep apnea, unspecified; F41.0 Panic disorder [episodic paroxysmal anxiety]; F90.9 Attention-deficit hyperactivity disorder, unspecified type; Z79.899 Other long term (current) drug therapy
CPT/HCPCS: 80053; 81003; 81015; 85025; 87086; 99283

== ENCOUNTER 2018-05-20 17:35 | Emergency (ER) | payer SELFPAY ==
[2018-05-20] MEDS ORDERED: Doxycycline 100 MG CAP ONE (19:34)
--- NOTE | 2018-05-20 19:52 | RAD ---
CHEST TWO VIEWS: 05/20/18 HISTORY: Chest pain. Heart size and mediastinum are within normal limits. The lungs are clear of infiltrates. No bony find ings. IMPRESSION: No active intrathoracic disease. POS: [facility]
== END 2018-05-20 19:49 | disposition home or self-care (01) ==
LOC: NAV ERS 17:35
DX: J01.90 Acute sinusitis, unspecified (principal); I48.91 Unspecified atrial fibrillation; E03.9 Hypothyroidism, unspecified; E11.9 Type 2 diabetes mellitus without complications; G47.30 Sleep apnea, unspecified; F41.9 Anxiety disorder, unspecified; F90.9 Attention-deficit hyperactivity disorder, unspecified type; Z79.899 Other long term (current) drug therapy; Z79.84 Long term (current) use of oral hypoglycemic drugs
CPT/HCPCS: 36416; 71046; 93005

== ENCOUNTER 2018-07-21 12:42 | Emergency (ER) | payer SELFPAY | END 2018-07-21 13:31 | disposition home or self-care (01) | LOC: NAV ERS 12:42 | DX: M79.605 Pain in left leg (principal); I48.91 Unspecified atrial fibrillation; E11.9 Type 2 diabetes mellitus without complications; G47.30 Sleep apnea, unspecified; E66.9 Obesity, unspecified; F90.9 Attention-deficit hyperactivity disorder, unspecified type; F41.0 Panic disorder [episodic paroxysmal anxiety]; Z79.84 Long term (current) use of oral hypoglycemic drugs; Z79.899 Other long term (current) drug therapy | CPT/HCPCS: 99283 ==

== ENCOUNTER 2018-09-07 03:29 | Emergency (ER) | payer SELFPAY | END 2018-09-07 03:57 | disposition home or self-care (01) | LOC: NAV ERS 03:29 | DX: R50.9 Fever, unspecified (principal); R05 Cough; I10 Essential (primary) hypertension; I48.91 Unspecified atrial fibrillation; E03.9 Hypothyroidism, unspecified; E11.9 Type 2 diabetes mellitus without complications; G47.30 Sleep apnea, unspecified; Z79.899 Other long term (current) drug therapy; Z79.84 Long term (current) use of oral hypoglycemic drugs | CPT/HCPCS: 99281 ==

== ENCOUNTER 2019-01-28 11:00 | Emergency (ER) | payer SELFPAY ==
--- NOTE | 2019-01-28 11:37 | RAD ---
THREE VIEWS LEFT ANKLE: HISTORY: Pain. Injury. FINDINGS: No fracture. No cortical irregularity or periosteal reaction. Mild soft tissue swelling. IMPRESSION: No fracture. POS: OFF
--- NOTE | 2019-01-28 11:47 | RAD ---
Exam:3 views left foot. HISTORY: Pain. Injury. COMPARISON: None FINDINGS: Lisfranc alignment is maintained. Joint spaces are preserved. No fracture. IMPRESSION: No fracture.
== END 2019-01-28 12:09 | disposition home or self-care (01) ==
LOC: NAV ERS 11:00
DX: S93.402A Sprain of unspecified ligament of left ankle, initial encounter (principal); I48.91 Unspecified atrial fibrillation; E03.9 Hypothyroidism, unspecified; E11.9 Type 2 diabetes mellitus without complications; G47.30 Sleep apnea, unspecified; F17.220 Nicotine dependence, chewing tobacco, uncomplicated; F41.9 Anxiety disorder, unspecified; Z79.899 Other long term (current) drug therapy; Z79.84 Long term (current) use of oral hypoglycemic drugs; X50.1XXA Overexertion from prolonged static or awkward postures, initial encounter

== ENCOUNTER 2021-03-03 21:03 | Emergency (ER) | payer SELFPAY ==
[2021-03-03] MEDS ORDERED: Acetaminophen 500 MG TAB ONE (21:20)
[2021-03-04 20:38] LABS: SARS-CoV-2 PCR by NAA Not Detected (NotDetected)
== END 2021-03-03 21:33 | disposition home or self-care (01) ==
LOC: NAV ERS 21:03
DX: H65.92 Unspecified nonsuppurative otitis media, left ear (principal); I48.91 Unspecified atrial fibrillation; E03.9 Hypothyroidism, unspecified; E11.9 Type 2 diabetes mellitus without complications; F17.220 Nicotine dependence, chewing tobacco, uncomplicated; Z79.899 Other long term (current) drug therapy
CPT/HCPCS: 99283; U0003; U0005

== ENCOUNTER 2022-07-14 06:50 | Emergency (ER) | payer OTHER ==
[2022-07-14] MEDS ORDERED: Orphenadrine Citrate 60 MG/2 ML VIAL ONE (07:41)
== END 2022-07-14 08:00 | disposition home or self-care (01) ==
LOC: NAV ERS 06:50
DX: M62.830 Muscle spasm of back (principal); E11.9 Type 2 diabetes mellitus without complications; I48.91 Unspecified atrial fibrillation; F17.220 Nicotine dependence, chewing tobacco, uncomplicated; E03.9 Hypothyroidism, unspecified; Z79.899 Other long term (current) drug therapy
CPT/HCPCS: 96372; 99283; J2360

== ENCOUNTER 2022-07-15 17:31 | Emergency (ER) | payer OTHER, SELFPAY ==
[2022-07-15] MEDS ORDERED: Dexamethasone 20 MG/5 ML VIAL ONE (18:23)
== END 2022-07-15 18:47 | disposition home or self-care (01) ==
LOC: NAV ERS 17:31
DX: M54.12 Radiculopathy, cervical region (principal); E03.9 Hypothyroidism, unspecified; E11.9 Type 2 diabetes mellitus without complications; F17.220 Nicotine dependence, chewing tobacco, uncomplicated; Z79.84 Long term (current) use of oral hypoglycemic drugs; Z79.899 Other long term (current) drug therapy
CPT/HCPCS: 96372; 99283; J1100

== ENCOUNTER 2022-07-19 10:17 | Outpatient (CLI) | payer OTHER | END 2022-07-19 10:18 | disposition home or self-care (01) | LOC: NAV RAD 10:17 | PROVIDERS: ATTEND Family Medicine | DX: M54.12 Radiculopathy, cervical region (principal); M46.02 Spinal enthesopathy, cervical region | CPT/HCPCS: 72050 ==